=== PATIENT | female | born 1960 | race Caucasian/White ===

== ENCOUNTER → 2016-11-18 | Outpatient (CLI) | payer OTHER ==
[~2016-11-18] MED LIST: THROMBIN (RECOMBINANT) 5,000 UNIT VIAL TP ONE
--- NOTE | 2016-11-18 10:45 | MA ---
Diagnostic Digital Mammogram Right Breast Reason for examination: Follow up sonographically guided right breast biopsy. Technique: Craniocaudal and true lateral views were obtained. Findings: The Suros marker is deployed at the biopsy site in the upper-outer right breast. Impression: The Suros marker is deployed at the right breast biopsy site. We will await pathologic results.
--- NOTE | 2016-11-18 17:44 | US ---
Vacuum-Assisted Ultrasound-Guided Core Biopsy of the Right Breast Reason for Examination: Evaluate two adjacent solid nodules at the 9 o'clock position of the right b reast 10 cm from the nipple. Crosscutting Measure #226: Current tobacco user: No. Technique: Informed consent was obtained. Following sterile preparation and local anesthesia and ut ilizing vacuum assistance and sonographic guidance, a 9-gauge Suros needle was advanced into both les ions simultaneously. Multiple large core biopsies were obtained. The biopsy was performed with cont inuous real time sonographic monitoring. A Suros marker was deployed to dave the biopsy site. The n eedle was removed and hemostasis was obtained with manual compression. The patient tolerated the pro cedure well and no immediate complications occurred. A post biopsy mammogram will be obtained to kesha luate marker deployment. Discharge instructions were given by the Radiology nurse. Impression: Successful sonographically-guided large core biopsy of two adjacent solid nodules in the right breast. Material was sent to Pathology. We will await results.
== END ==
LOC: FIMAGING 08:24
PROVIDERS: ATTEND Physician Assistant
PROC: 0HBT3ZX Excision of Right Breast, Percutaneous Approach, Diagnostic (ICD-10-PCS; principal; 2016-11-18)
DX: N63 Unspecified lump in breast (principal)
CPT/HCPCS: 19083; 19084; G0206

== ENCOUNTER → 2017-01-07 | Outpatient (CLI) | payer OTHER | LOC: BMCIMAGING 09:05 | PROVIDERS: ATTEND Internal Medicine Endocrinology, Diabetes & Metabolism | DX: E04.2 Nontoxic multinodular goiter (principal); E89.0 Postprocedural hypothyroidism | CPT/HCPCS: 76536-PO ==

== ENCOUNTER 2017-03-15 08:04 | Emergency (ER) | payer OTHER ==
[2017-03-15 08:09] VITALS: TEMP 98.1
--- NOTE | 2017-03-15 08:39 | EDPHY ---
H & P Stated Complaint: Woke up w/R side of face numbness;R eye won't close Time Seen by Provider: 03/15/17 08:05 HPI/ROS: CHIEF COMPLAINT: Right facial weakness, 3 day history of headache, slight increase in chronic neck pain HISTORY OF PRESENT ILLNESS: The patient presents to the ED with new onset right facial weakness. The patient denies any numbness or peripheral weakness. The patient also reports she has had a 3 day history of fairly significant right retro-orbital headache. The patient has had an exacerbation of some chronic neck pain which is worsened with flexion and extension primarily localized to the posterior aspect of her cervical spine bilaterally. The patient denies any recent chiropractic manipulation or cervical trauma. 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 REVIEW OF SYSTEMS: A comprehensive 10 point review of systems is otherwise negative aside from elements mentioned in the history of present illness. 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 - Social History Smoking Status: Former smoker - Physical Exam Exam: General Appearance: Alert, no distress Eyes: Pupils equal and round no pallor or injection, no anisocoria, normal extraocular eye movements ENT, Mouth: Mucous membranes moist Neck: No carotid bruit, minimal tenderness to palpation throughout the posterior paraspinal cervical musculature. Respiratory: There are no retractions, lungs are clear to auscultation Cardiovascular: Regular rate and rhythm Gastrointestinal: Abdomen is soft and nontender, no masses, bowel sounds normal Neurological: Alert and oriented x4, 5/5 strength appreciated in all 4 extremities, patient does have a right cranial nerve 7 palsy with involvement of the forehead consistent with a peripheral nerve injury. Skin: Warm and dry, no rashes Musculoskeletal: No midline cervical spine tenderness Extremities: symmetrical, full range of motion Constitutional: Initial Vital Signs Temperature (C) 36.7 C 03/15/17 08:05 Heart Rate 101 H 05/06/17 08:05 Respiratory Rate 18 03/15/17 08:05 Blood Pressure 162/93 H 03/15/17 08:05 O2 Sat (%) 98 03/15/17 08:05 O2 Delivery Mode Room Air Allergies/Adverse Reactions: ADHESIVES Allergy (Mild, Uncoded 03/15/17 08:06) skin irritation Home Medications: Medication Instructions Recorded Valacyclovir HCl [Valtrex] 1,000 mg PO TID #21 tab 03/15/17 predniSONE [prednisone 20mg (RX)] 3 tab PO DAILY #21 tab 03/15/17 Medical Decision Making - Diagnostics Imaging Results: Imaging Impressions Brain MRI 03/15/17 08:34 Impression: Normal MRI of the brain without contrast. Findings discussed with Grover Allen M.D. at 13:35 hour, 03/15/2017. Head MRA 03/15/17 08:34 Impression: Normal MRA of the [place] as detailed above. Findings discussed with Grover Allen M.D. at 13:35 hour, 03/15/2017. ED Course/Re-evaluation: The patient presents to the ED with a obvious peripheral nerve 7 lesion. Given the patient's complaints of an acute headache for the past 3 days as well as an acute exacerbation of chronic neck pain additional imaging studies have been undertaken in the ED including an MRI of the brain and MR angiogram of head neck. Patient has no evidence of an obvious stroke at this point time. The patient is a brain MRI and MR angiogram of the head neck are normal. The patient will be discharged home with instructions for Dominguez's palsy. The patient will be provided a prescription for Valtrex and prednisone. The patient will follow up with her primary care provider at [facility]. Differential Diagnosis: Differential diagnosis considered includes Dominguez's palsy, EXTENSION ASSOCIATE tumor, atypical migraine, intracranial hemorrhage - Data Points Laboratory Results: 03/15/17 08:42 POC Hgb 15.0 gm/dL gm/dL (12.3-15.9) POC Hct 44 % % (35.5-47.5) POC Sodium 147 mEq/L H mEq/L (134-144) POC Potassium 3.6 mEq/L mEq/L (3.3-5.0) POC Chloride 106 mEq/L mEq/L (96-108) POC BUN 15 mg/dL mg/dL (7-23) POC Creatinine 0.7 mg/dL mg/dL (0.6-1.2) POC Glucose 93 mg/dL mg/dL (70-100) Point of Care Test Results: 03/15/17 08:42 POC Sodium 147 H POC Potassium 3.6 POC Chloride 106 POC BUN 15 POC Creatinine 0.7 POC Glucose 93 Departure - Departure Disposition: Home, Routine, Self-Care Clinical Impression: Dominguez's palsy Condition: Good Instructions: Dominguez Palsy (ED) Additional Instructions: 1. Take Valtrex and prednisone as directed. 2. Please follow up with your primary care provider for a recheck in the next week. 3. Please use Lacri-Lube ointment and artificial tears without preservative to your right eye as your current facial weakness may dry your eye out and cause ocular irritation. 4. Return to the ED for any new neurologic symptoms of numbness, weakness, severe headache or other concerns. 5. Your MRI demonstrates no evidence of a stroke, tumor or vascular abnormality. Referrals: Joana Stanley PA [Primary Care Provider] - As per Instructions
[2017-03-15] MEDS ORDERED: GADOBUTROL 10 ML VIAL IVP ONE (10:25)
[2017-03-15 14:20] VITALS: BP 160/99; PULSE 87; RESP 18; O2SAT 94
== END 2017-03-15 14:20 | disposition home or self-care (01) ==
DX: G51.0 Bell's palsy (principal); Z87.891 Personal history of nicotine dependence
CPT/HCPCS: 82947-QW; A9585

== ENCOUNTER → 2018-02-18 | Outpatient (CLI) | payer OTHER | LOC: BMCIMAGING 12:28 | PROVIDERS: ATTEND Internal Medicine Endocrinology, Diabetes & Metabolism | DX: E04.2 Nontoxic multinodular goiter (principal); Z90.89 Acquired absence of other organs | CPT/HCPCS: 76536-PO ==

== ENCOUNTER → 2018-09-18 | Outpatient (CLI) | payer OTHER | LOC: BMCIMAGING 07:14 | PROVIDERS: ATTEND Internal Medicine Endocrinology, Diabetes & Metabolism | DX: E04.1 Nontoxic single thyroid nodule (principal) | CPT/HCPCS: 76536-PO ==

== ENCOUNTER → 2019-02-19 | Outpatient (CLI) | payer OTHER | LOC: FIMAGING 07:43 | PROVIDERS: ATTEND Physician Assistant | DX: N64.4 Mastodynia (principal) ==